=== PATIENT | male | born 1960 ===

== ENCOUNTER 2017-02-28 15:24 | Emergency (ER) | payer BC ==
[2017-02-28 15:33] VITALS: BP 131/69; RESP 16; TEMP 98; O2SAT 98
--- NOTE | 2017-02-28 15:40 | ED PDOC ---
HPI: General Adult Time Seen by Provider: 02/28/17 15:32 Chief Complaint (Nursing): Upper Extremity Problem/Injury History Per: Patient Additional Complaint(s): Pt. states for the past week he's had atraumatic L shoulder pain radiating down the entire L arm. Reports pain is worsened with movement. Denies trauma, weakness, chest pain, SOB, back pain, fever, previous shoulder problems, swelling. Of note, pt. states 3 months ago he had a routine cardiac stress test done which was normal. Past Medical History Reviewed: Historical Data, Nursing Documentation, Vital Signs Vital Signs: Last Vital Signs Temp 98.0 F 02/28/17 15:28 Pulse 94 H 02/28/17 15:42 Resp 16 02/28/17 15:28 BP 131/69 02/28/17 15:28 Pulse Ox 98 02/28/17 15:42 - Medical History PMH: Diabetes, HTN - Family History Family History: States: No Known Family Hx - Home Medications Home Medications: Ambulatory Orders Medication Instructions Recorded Lidocaine 5% [Lidoderm] 1 ea TD DAILY PRN #15 patch 02/28/17 - Allergies Allergies/Adverse Reactions: Allergies Allergy/AdvReac Type Severity Reaction Status Date / Time No Known Allergies Allergy Verified 02/28/17 15:32 Review of Systems ROS Statement: Except As Marked, All Systems Reviewed And Found Negative Musculoskeletal: Positive for: Shoulder Pain Physical Exam - Physical Exam Appears: Positive for: Well, Non-toxic, No Acute Distress Skin: Positive for: Normal Color, Warm. Negative for: Rash Eye Exam: Positive for: Normal appearance Neck: Positive for: Normal, Painless ROM Cardiovascular/Chest: Positive for: Regular Rate, Rhythm Respiratory: Positive for: Normal Breath Sounds. Negative for: Respiratory Distress Pulses-Radial (L): 2+ Pulses-Radial (R): 2+ Back: Positive for: Normal Inspection. Negative for: L CVA Tenderness, R CVA Tenderness Extremity: Positive for: Other (FROM actively of L shoulder but with pain, L shoulder with minimal pinpoint lateral tenderness without deformity; no swelling , warmth, erythema or deformity to entire left upper extremity) Neurologic/Psych: Positive for: Alert, Oriented, Other (equal dry box tender strenght b/l ). Negative for: Aphasia, Facial Droop - ECG ECG: Positive for: Interpreted By Me ECG Rhythm: Positive for: Sinus Rhythm. Negative for: ST/T Changes Rate: 94 O2 Sat by Pulse Oximetry: 98 - Radiology X-Ray: Interpreted by Me (L shoulder xray) X-Ray Interpretation: Other (no fx, dislocation, or bony abnormality) - Progress ED Course And Treament: EKG, L shoulder xray ordered. Tylenol 975mg PO given (pt. takes ASA daily). Disposition - Clinical Impression Clinical Impression: Shoulder pain - Patient ED Disposition Is Patient to be Admitted: No - Disposition Disposition: Routine/Home Disposition Time: 16:20 Condition: STABLE Prescriptions: Lidocaine 5% [Lidoderm] 1 ea TD DAILY PRN #15 patch PRN Reason: Pain Instructions: Shoulder Pain (ED) Forms: [employer] (Uzbek), [employer] (Luxembourgish) Print Language: BENGALI
[2017-02-28 15:42] VITALS: PULSE 94
--- NOTE | 2017-03-01 11:26 | RAD ---
PROCEDURE: Radiographs of the Left Shoulder HISTORY: pain No antecedent history of trauma provided. COMPARISON: No prior. FINDINGS: BONES: Normal. No fracture. JOINTS: Normal. Glenohumeral and acromioclavicular joints preserved. No osteoarthritis. SOFT TISSUES: Normal. OTHER FINDINGS: None. IMPRESSION: Unremarkable radiographs of the left shoulder. No preliminary report provided by emergency department personnel.
--- NOTE | 2017-03-03 18:39 | CARD ---
APPROVED REPORT EKG Measurement Heart [id number] <Conclusion> Normal sinus rhythm Nonspecific ST and T wave abnormality Abnormal ECG
== END 2017-02-28 17:27 | disposition home or self-care (01) ==
LOC: H.ER 15:24
DX: M25.512 Pain in left shoulder (principal); E11.9 Type 2 diabetes mellitus without complications; I10 Essential (primary) hypertension